=== PATIENT | female | born 1975 | race Caucasian/White ===

== ENCOUNTER 2023-10-12 12:41 | Emergency (ER) | payer BC ==
[~2023-10-12] VITALS: Ht 167.6 cm; Wt 60.3 kg
[2023-10-12 12:55] VITALS: BP 126/68; TEMP 98.2; O2SAT 98
[2023-10-12] MEDS ORDERED: LIDOCAINE HCL/PF 1% 30 ML VIAL TP ONE (13:30)
[2023-10-12] MEDS ORDERED: LIDOCAINE 2% 20 ML MDV ONE (13:35)
== END 2023-10-12 14:40 | disposition home or self-care (01) ==
LOC: ER 12:41
DX: S61.210A Laceration without foreign body of right index finger without damage to nail, initial encounter (principal); W45.8XXA Other foreign body or object entering through skin, initial encounter; Y93.89 Activity, other specified; Y92.89 Other specified places as the place of occurrence of the external cause; Y99.8 Other external cause status
CPT/HCPCS: 12002; 99282; J3490